=== PATIENT | female | born 1985 | race Caucasian/White ===

== ENCOUNTER 2019-01-16 21:28 | Emergency (ER) | payer OTHER ==
[2019-01-16] MEDS ORDERED: TYLENOL PO ONE (22:25)
--- NOTE | 2019-01-16 23:49 | Emergency Department Report ---
ED Fall HPI - General Chief Complaint: Fall Stated Complaint: BODY PAIN(POST FALL) Time Seen by Provider: 01/16/19 23:44 Source: patient Mode of arrival: Ambulatory - History of Present Illness Initial Comments: 33-year-old female reports to the emergency room status post slipped on water and had a ground-level fall around 7 PM tonight. Patient comes in complaining of left forearm pain and left the bilateral feet pain. Patient reports she is able to ambulate. She has no allergies to medications MR. Guerrero is 01/09/2019. Patient has no past medical history. 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: yes, by bystander Place Fall Occurred: other (treatment at) Loss of Consciousness: none Prolonged Down Time?: no Symptoms Prior to Fall: none Location - Extremities: Left: Forearm, Knee, Foot, Right: Foot Severity scale (0 -10): 10 Quality: sharp, aching Context: tripped/slipped Associated Symptoms: denies: headache, neck pain, numbness, weakness, unable to walk - Related Data Previous Rx's Medication Instructions Recorded Last Taken Type Ibuprofen [Motrin 600 MG tab] 600 mg PO Q8H PRN #15 tablet 01/17/19 Unknown Rx Allergies Allergy/AdvReac Type Severity Reaction Status Date / Time No Known Allergies Allergy Verified 01/16/19 23:59 ED Review of Systems ROS: Stated complaint: BODY PAIN(POST FALL) Other details as noted in HPI Comment: All other systems reviewed and negative Musculoskeletal: arthralgia ED Past Medical Hx - Past Medical History Previous Medical History?: No - Surgical History Past Surgical History?: No - Social History Smoking Status: Never Smoker Substance Use Type: None - Medications Home Medications: Home Medications Medication Instructions Recorded Confirmed Last Taken Type Ibuprofen [Motrin 600 MG tab] 600 mg PO Q8H PRN #15 tablet 01/17/19 Unknown Rx ED Physical Exam - General Limitations: Language Barrier General appearance: alert, in no apparent distress - Head Head exam: Present: atraumatic, normocephalic - Eye Eye exam: Present: EOMI - ENT ENT exam: Present: mucous membranes moist - Expanded Upper Extremity Exam Left Shoulder Exam: Present: normal inspection, full ROM Upper Arm exam: Present: normal inspection, full ROM Elbow exam: Present: normal inspection, full ROM Forearm Wrist exam: Present: tenderness, swelling, ecchymosis Neuro motor exam: Present: wrist extension intact, thumb opposition intact, thumb IP flexion intact Neurosensory exam: Present: 2-point discrimination Vascular: Present: normal capillary refill. Absent: vascular compromise - Expanded Lower Extremity Exam Left Hip exam: Present: normal inspection Upper Leg exam: Present: normal inspection Knee exam: Present: full ROM, abrasion. Absent: swelling Lower Leg exam: Present: normal inspection, full ROM Ankle exam: Present: full ROM, tenderness, swelling, ecchymosis Right Hip exam: Present: normal inspection, full ROM Upper Leg exam: Present: normal inspection, full ROM Knee exam: Present: normal inspection, full ROM Lower Leg exam: Present: normal inspection, full ROM Ankle exam: Present: full ROM, tenderness, swelling, ecchymosis Foot/Toe exam: Present: normal inspection, full ROM Neuro vascular tendon exam: Present: no vascular compromise - Back Exam Back exam: Present: normal inspection, full ROM ED Course Vital Signs 01/16/19 21:32 Temperature 98.4 F Pulse Rate 108 H Respiratory 18 Rate Blood Pressure 124/83 O2 Sat by Pulse 100 Oximetry ED Medical Decision Making - Radiology Data Radiology results: report reviewed Patient: STEPHEN ROCHA MR#: [id number] : 1985 Acct:[id number] Age/Sex: 33 / F ADM Date: 01/16/19 Loc: ED Attending Dr: Ordering Physician: HAYDE BLACKWOOD Date of Service: 01/16/19 Procedure(s): XR forearm LT Accession Number(s): [id number] cc: HAYDE BLACKWOOD Fluoro Time In Minutes: PROCEDURE: XR FOREARM LT TECHNIQUE: Left forearm radiographs, AP and lateral views. HISTORY: fall with pain and swelling COMPARISONS: None . FINDINGS: Fracture (s) and/or Dislocation(s): None . Joint space(s): Normal . Soft tissues: Normal . Bone mineralization: Normal . Foreign bodies: None . IMPRESSION: Normal Examination . This document is electronically signed by Neris Manzo DO., January 17 2019 12:43:24 AM ET Transcribed By: [facility] Dictated By: NERIS MANZO MD Electronically Authenticated By: NERIS MANZO MD Signed Date/Time: 01/17/1944 DD/ TD/TT: 01/17/1939 Patient: STEPHEN ROCHA MR#: [id number] : 1985 Acct:[id number] Age/Sex: 33 / F ADM Date: 01/16/19 Loc: ED Attending Dr: Ordering Physician: HAYDE BLACKWOOD Date of Service: 01/16/19 Procedure(s): XR foot BILAT 2V Accession Number(s): [id number] cc: HAYDE BLACKWOOD Fluoro Time In Minutes: PROCEDURE: XR FOOT BILAT 2V TECHNIQUE: BILATERAL foot radiographs, AP and lateral views. HISTORY: pain and tenderness COMPARISONS: None . FINDINGS: Fracture (s) and/or Dislocation(s): None . Alignment: Normal . Joint space(s): Normal . Soft tissues: Normal . Bone mineralization: Normal . Foreign bodies: None . Calcaneal spurring: None . IMPRESSION: Normal Examination of both feet. This document is electronically signed by Neris Manzo DO., January 17 2019 12:45:48 AM ET Transcribed By: [facility] Dictated By: NERIS MANZO MD Electronically Authenticated By: NERIS MANZO MD Signed Date/Time: 01/17/1946 DD/ TD/TT: 01/17/1938 - Medical Decision Making Patient has been evaluated by this provider in fast track Tylenol given in triage for pain management. X-rays have been ordered for left forearm and bilateral feet. Critical care attestation.: If time is entered above; I have spent that time in minutes in the direct care of this critically ill patient, excluding procedure time. ED Disposition Clinical Impression: Fall Qualifiers: Encounter type: initial encounter Qualified Code(s): W19.XXXA - Unspecified fall, initial encounter Contusion of left lower arm Qualifiers: Encounter type: initial encounter Qualified Code(s): S50.12XA - Contusion of left forearm, initial encounter Contusion, foot Qualifiers: Encounter type: initial encounter Laterality: right Qualified Code(s): S90.31XA - Contusion of right foot, initial encounter Contusion of foot, left Qualifiers: Encounter type: initial encounter Qualified Code(s): S90.32XA - Contusion of left foot, initial encounter Disposition: TO HOME OR SELFCARE Is pt being admited?: No Does the pt Need Aspirin: No Condition: Stable Instructions: Fall Prevention (ED), Arthralgia (ED) Additional Instructions: X-rays were negative. You can take ibuprofen for pain management. Follow-up with her primary care provider if his symptoms persist or gets worse. Prescriptions: Ibuprofen [Motrin 600 MG tab] 600 mg PO Q8H PRN #15 tablet PRN Reason: Pain Referrals: [facility] [Provider Group] - 3-5 Days
--- NOTE | 2019-01-17 00:45 | XRay Report ---
PROCEDURE: XR FOREARM LT TECHNIQUE: Left forearm radiographs, AP and lateral views. HISTORY: fall with pain and swelling COMPARISONS: None . FINDINGS: Fracture (s) and/or Dislocation(s): None . Joint space(s): Normal . Soft tissues: Normal . Bone mineralization: Normal . Foreign bodies: None . IMPRESSION: Normal Examination . This document is electronically signed by Khloe Manzo DO., January 17 2019 12:43:24 AM ET
--- NOTE | 2019-01-17 00:47 | XRay Report ---
PROCEDURE: XR FOOT BILAT 2V TECHNIQUE: BILATERAL foot radiographs, AP and lateral views. HISTORY: pain and tenderness COMPARISONS: None . FINDINGS: Fracture (s) and/or Dislocation(s): None . Alignment: Normal . Joint space(s): Normal . Soft tissues: Normal . Bone mineralization: Normal . Foreign bodies: None . Calcaneal spurring: None . IMPRESSION: Normal Examination of both feet. This document is electronically signed by Khloe Manzo DO., January 17 2019 12:45:48 AM ET
[2019-01-17 02:09] VITALS: BP 122/80
== END 2019-01-17 01:56 | disposition home or self-care (01) ==
LOC: ED 21:28
DX: S50.12XA Contusion of left forearm, initial encounter (principal); S90.31XA Contusion of right foot, initial encounter; S90.32XA Contusion of left foot, initial encounter; W01.0XXA Fall on same level from slipping, tripping and stumbling without subsequent striking against object, initial encounter; Y93.89 Activity, other specified; Y92.89 Other specified places as the place of occurrence of the external cause; Y99.8 Other external cause status
CPT/HCPCS: 99283

== ENCOUNTER 2020-09-04 23:56 | Emergency (ER) | payer OTHER ==
[2020-09-05] MEDS ORDERED: diphenhydrAMINE 50 MG/ML VIAL IV ONE (02:48)
[2020-09-05] MEDS ORDERED: SODIUM CHLORIDE 0.9% 1000 ML 1,000 ML IV ONE (02:48)
[2020-09-05] MEDS ORDERED: methylPREDNISolone Sod Succinate 125 MG/2 ML INJ IV ONE (02:48)
[2020-09-05] MEDS ORDERED: FAMOTIDINE 20 MG/2 ML INJ IV ONE (02:48)
--- NOTE | 2020-09-05 02:49 | Emergency Department Report ---
ED General Adult HPI - General Chief complaint: Allergic Reaction Stated complaint: ALLERGIC REACTION PUI?: No Time Seen by Provider: 09/05/20 02:37 Source: patient, RN notes reviewed, old records reviewed Mode of arrival: Ambulatory Limitations: No Limitations - History of Present Illness Initial comments: The patient was evaluated in the emergency department for symptoms described in the history of present illness. He/she was evaluated in the context of the global COVID-19 pandemic, which necessitated consideration that the patient might be at risk for infection with the virus that causes COVID-19. Institutional protocols and algorithms that pertain to the evaluation of patients at risk for COVID-19 are in a state of rapid change based on information released by regulatory bodies including the CDC and federal and state organizations. These policies and algorithms were followed during the patient's care in the emergency department. Please note that these policies, procedures and recommendations changed on a rapid basis. During the entire history and physical examination, I am chaperoned by STEVE Rodríguez Primary CARE doctor: Dr. Rell Nguyen Patient able to speak in Finnish, and also in Romanian. Please note that I am conversant in Romanian. The patient is a 34-year-old female who states that she is not . She presents to the ER with a complaint of 1 day of diffuse body rash. She states that she took an [id number] Zyrtec on Friday. Shortly thereafter, she developed a diffuse rash. She denies headache, neck pain, chest pain, abdominal pain, shortness of breath, fever, chills, sore throat, dysphonia. She reports that she does have an indwelling female pad/tampon, but she only put it in within the past 24 hours. Her rash developed before insertion of the tampon. Her primary care doctor started her on prednisone after the onset of the rash. She was given Pepcid, Benadryl, and Solu-Medrol in the emergency room, which essentially resolved her symptoms. She denies physical pain at the moment -: days(s) Location: chest, back, abdomen, left, right, upper extremity, lower extremity Consistency: constant Improves with: medication Worsens with: none Associated Symptoms: denies other symptoms, rash - Related Data Previous Rx's Medication Instructions Recorded Last Taken Type Ibuprofen [Motrin 600 MG tab] 600 mg PO Q8H PRN #15 tablet 01/17/19 Unknown Rx Allergies Allergy/AdvReac Type Severity Reaction Status Date / Time No Known Allergies Allergy Verified 01/16/19 23:59 ED Review of Systems ROS: Stated complaint: ALLERGIC REACTION Other details as noted in HPI Comment: All other systems reviewed and negative Skin: rash ED Past Medical Hx - Social History Smoking Status: Never Smoker Substance Use Type: None - Medications Home Medications: Home Medications Medication Instructions Recorded Confirmed Last Taken Type Ibuprofen [Motrin 600 MG tab] 600 mg PO Q8H PRN #15 tablet 01/17/19 Unknown Rx ED Physical Exam - General Limitations: No Limitations General appearance: alert, in no apparent distress - Head Head exam: Present: atraumatic, normocephalic - Eye Eye exam: Present: normal appearance, EOMI. Absent: nystagmus - ENT ENT exam: Present: normal exam, normal orophraynx, mucous membranes moist, normal external ear exam, other (There is no stridor or dysphonia. No intraoral lesions noted. Patient speaking in full sentences.) - Neck Neck exam: Present: normal inspection, full ROM. Absent: tenderness, meningismus - Respiratory Respiratory exam: Present: normal lung sounds bilaterally. Absent: respiratory distress, wheezes, rales, rhonchi, stridor, decreased breath sounds - Cardiovascular Cardiovascular Exam: Present: normal rhythm, tachycardia, normal heart sounds. Absent: bradycardia, irregular rhythm, systolic murmur, diastolic murmur, rubs, gallop - GI/Abdominal GI/Abdominal exam: Present: soft, normal bowel sounds. Absent: distended, tenderness, guarding, rebound, rigid, pulsatile mass - Extremities Exam Extremities exam: Present: normal inspection, full ROM, other (2+ pulses noted in the bilateral upper and lower extremities. There is no palpable cord. negative Homans sign. Muscular compartments are soft. The pelvis is stable.). Absent: pedal edema, calf tenderness - Back Exam Back exam: Present: normal inspection, full ROM. Absent: tenderness, CVA tenderness (R), CVA tenderness (L), paraspinal tenderness, vertebral tenderness - Neurological Exam Neurological exam: Present: alert, normal gait, other (No facial droop. Tongue midline. Extraocular movements intact bilaterally. Facial sensation intact to light touch in V1, V2, V3 distribution bilaterally. 5 and a 5 strength in 4 extremities. Sensation intact to light touch in 4 extremities.) - Psychiatric Psychiatric exam: Present: anxious - Skin Skin exam: Present: warm, dry, intact, rash, erythema, other (Diffuse blanching macules, nontender, without pus or streaking.). Absent: cyanosis, diaphoretic, urticaria, vesicles, petechiae, pallor, abrasion, ecchymosis ED Course Vital Signs 09/05/20 09/05/20 09/05/20 00:28 02:40 03:40 Temperature 97.5 F L Pulse Rate 127 H 112 H 98 H Respiratory 17 16 16 Rate Blood Pressure 116/80 Blood Pressure 116/83 124/84 [Left] O2 Sat by Pulse 99 100 100 Oximetry 09/05/20 03:51 Temperature Pulse Rate 98 H Respiratory 16 Rate Blood Pressure Blood Pressure [Left] O2 Sat by Pulse 100 Oximetry ED Medical Decision Making - Medical Decision Making Vital Signs 09/05/20 09/05/20 09/05/20 00:28 02:40 03:40 Temperature 97.5 F L Pulse Rate 127 H 112 H 98 H Respiratory 17 16 16 Rate Blood Pressure 116/80 Blood Pressure 116/83 124/84 [Left] O2 Sat by Pulse 99 100 100 Oximetry 09/05/20 03:51 Temperature Pulse Rate 98 H Respiratory 16 Rate Blood Pressure Blood Pressure [Left] O2 Sat by Pulse 100 Oximetry Differential diagnosis, including but not limited to: Urticaria, nonspecific allergic reaction Assessment and plan: 34-year-old female, who was afebrile, with reassuring vital signs, with resolved tachycardia, without intraoral involvement, who reports inserting a tampon after onset of rash, rashes not erythroderma-like or sunburned in nature, she is afebrile, nontoxic-appearing, denies vaginal discomfort, rectal discomfort, dysuria, this is not suggestive of toxic shock, or any dangerous etiology. This is most likely urticaria. Her tachycardia resolved, she is resting comfortably on her stretcher, and in no acute distress. Discharged with as needed EpiPen, Pepcid, Benadryl, steroid burst, she can follow-up with outpatient primary care, dermatology, and or allergy/immunology. Patient observed in this ER for approximately 4 hours without clinical decompensation. Critical care attestation.: If time is entered above; I have spent that time in minutes in the direct care of this critically ill patient, excluding procedure time. ED Disposition Clinical Impression: Urticaria Disposition: DC-01 TO HOME OR SELFCARE Is pt being admited?: No Does the pt Need Aspirin: No Condition: Stable Instructions: Rash, Adult Additional Instructions: Take the prescribed medications as needed and directed. Use the epinephrine pen only if patient develops inability to speak, or inability to breathe. Recommend follow-up with an outpatient erp analyst, or allergy applications support specialist within the next 2 weeks, if rash does not resolve. Please return to the emergency room right away with new pain, worsening pain, migration of pain, projectile vomiting, change in mental status, inability to tolerate liquid feeds, oral pain/discomfort, vaginal/rectal pain or discomfort, fevers or chills, severe muscle aches, or any new, worsened or different symptoms not present on the initial emergency room evaluation [place] los medicamentos recetados segn sea necesario y se le indique. Use la pluma de epinefrina solo si el paciente desarrolla incapacidad para hablar o inhabilidad para respirar. Recomiende un seguimiento con un dermatlogo para pacientes ambulatorios o un especialista en inmunologa de alergias dentro de las prximas 2 semanas, si la erupcin no se resuelve. Regrese a la nisha de emergencias de inmediato con un nuevo dolor, empeoramiento del dolor, migracin del dolor, vmitos en proyectil, cambio en el estado mental, incapacidad para tolerar la alimentacin lquida, dolor o malestar oral, dolor o malestar vaginal / rectal, fiebre o escalofros, joel musculares o cualquier sntoma nuevo, empeorado o diferente que no est presente en la evaluacin inicial de la nisha de emergencias Referrals: PRIMARY CARE, [Primary Care Provider] - 3-5 Days TIERA NGUYEN MD [Staff Physician] - 3-5 Days Forms: Work/School Release Form(ED) Time of Disposition: 04:34 Print Language: CAPE VERDEAN
[2020-09-05 06:22] VITALS: BP 114/64
== END 2020-09-05 05:10 | disposition home or self-care (01) ==
LOC: ED 23:56
DX: L50.9 Urticaria, unspecified (principal); Z79.1 Long term (current) use of non-steroidal anti-inflammatories (NSAID)
CPT/HCPCS: 96361; 96374; 96375; 99283; J1200; J2930; J7030

== ENCOUNTER 2020-12-19 14:17 | Outpatient (CLI) | payer OTHER ==
--- NOTE | 2020-12-19 16:35 | Mammography Report ---
BILATERAL DIGITAL DIAGNOSTIC MAMMOGRAM WITH CAD , 12/19/2020 LEFT COMPLETE BREAST ULTRASOUND CLINICAL INFORMATION / INDICATION: The patient reports pain in the upper outer left breast for one mo nth. TECHNIQUE: Digital bilateral mammographic imaging was performed. Complete ultrasound of all four (4) quadrants was performed. This examination was interpreted with the benefit of Computer-Aided Detectio n (CAD) analysis. COMPARISON: None. This is the patient's first mammogram FINDINGS: Breast Density: The breasts are heterogeneously dense, which may obscure small masses. MAMMOGRAPHIC FINDINGS: No dominant mass, suspicious calcifications, or architectural distortion in ei ther breast. There is no focal abnormality to account for the patient's left breast pain ULTRASOUND FINDINGS: Complete sonographic evaluation of all 4 quadrants and retroareolar region was p erformed. There is no evidence of suspicious solid mass or shadowing. There is no focal abnormality to account for the patient's left breast pain. A few small scattered cysts and fibrocystic change ar e noted in the upper outer quadrant with the largest cyst located at the 2:00 position measuring 1 cm . IMPRESSION: No mammographic or sonographic evidence of malignancy. No focal mammographic or sonograph ic abnormality is seen to correspond to the patient's left breast pain. Therefore, clinical correlati on is recommended. Follow up recommendation: Clinical exam BI-RADS Category 2: Benign. A "normal" or negative report should not discourage follow up or biopsy of a clinically significant f inding. A written summary of these findings will be mailed to the patient. The patient will be entered into a mammography reporting system which will generate a reminder letter for the patient's next appointmen t at the appropriate interval. According to the [employer], yearly mammograms are recommended starting at age 40 and continuing as long as a woman is in good health. Breast MRI is recommended for women with an bryanna roximately 20-25% or greater lifetime risk of breast cancer, including women with a strong family his tory of breast or ovarian cancer and women who have been treated for Hodgkin's disease. Signer Name: Juju Rangel MD Signed: 12/19/2020 4:29 PM Workstation Name: [id number]
--- NOTE | 2020-12-19 16:36 | Ultrasound Report ---
Please see diagnostic mammography report performed the same day. Signer Name: Juju Rangel MD Signed: 12/19/2020 4:29 PM Workstation Name: [id number]
== END 2020-12-19 14:18 | disposition home or self-care (01) ==
LOC: SPVWC 14:17
PROVIDERS: ATTEND Surgery
DX: N60.02 Solitary cyst of left breast (principal); R92.8 Other abnormal and inconclusive findings on diagnostic imaging of breast
CPT/HCPCS: 77066

== ENCOUNTER 2022-01-30 13:51 | Outpatient (CLI) | payer OTHER ==
--- NOTE | 2022-01-31 09:11 | Ultrasound Report ---
BILATERAL DIGITAL DIAGNOSTIC MAMMOGRAM WITH CAD WITH TOMOSYNTHESIS, 01/30/2022 BILATERAL LIMITED BREAST ULTRASOUND CLINICAL INFORMATION / INDICATION: Patient presents for evaluation of bilateral breast pain. DIFFUSE CYSTIC MASTOPATHY OF LEFT BREAST N60.12 TECHNIQUE: Digital bilateral mammographic imaging was performed. Spot compression views were obtained . Limited ultrasound was performed. This examination was interpreted with the benefit of Computer-Aid ed Detection (CAD) analysis. COMPARISON: Prior mammogram 12/19/2020 FINDINGS: Breast Density: The breasts are heterogeneously dense, which may obscure small masses. MAMMOGRAPHIC FINDINGS: No dominant mass, suspicious calcifications, or architectural distortion in ei ther breast. There has been no significant change compared with the prior examination. There is no ma mmographic abnormality to account for the area of focal pain in both breasts, therefore targeted bila teral breast ultrasound was performed for further evaluation. ULTRASOUND FINDINGS: Targeted ultrasound evaluation was performed of the area of interest. Right breast: Targeted ultrasound of the area of focal pain in the upper outer quadrant of the right breast reveals dense fibroglandular tissue. No suspicious cystic or solid lesion identified. Left breast: Targeted ultrasound of the area of focal pain in the upper outer quadrant of the left br east reveals dense fibroglandular tissue. No suspicious cystic or solid lesion identified. IMPRESSION: 1. There is no mammographic or sonographic abnormality to account for the area of focal pain in both breasts, therefore clinical correlation is recommended. Follow up recommendation: Unless otherwise clinically indicated, recommend patient return to routine screening mammography at age 40. BI-RADS Category 1: NEGATIVE. A "normal" or negative report should not discourage follow up or biopsy of a clinically significant f inding. A written summary of these findings will be mailed to the patient. The patient will be entered into a mammography reporting system which will generate a reminder letter for the patient's next appointmen t at the appropriate interval. According to the [employer], yearly mammograms are recommended starting at age 40 and continuing as long as a woman is in good health. Breast MRI is recommended for women with an bryanna roximately 20-25% or greater lifetime risk of breast cancer, including women with a strong family his tory of breast or ovarian cancer and women who have been treated for Hodgkin's disease. Signer Name: Shell Cody MD Signed: 01/31/2022 9:07 AM Workstation Name: [id number]
== END 2022-01-30 13:52 | disposition home or self-care (01) ==
LOC: SPVWC 13:51
PROVIDERS: ATTEND Surgery
DX: N60.12 Diffuse cystic mastopathy of left breast (principal); N60.11 Diffuse cystic mastopathy of right breast; N64.4 Mastodynia
CPT/HCPCS: 76642; 77066; G0279

== ENCOUNTER 2022-05-06 13:40 | Emergency (ER) | payer OTHER ==
[2022-05-06 13:48] VITALS: BP 119/76
[2022-05-06 16:15] LABS: Bilirubin,Urine NEG (Negative); Blood,Urine SM (Negative); Color,Urine Yellow (Yellow); Protein,Urine <15 mg/dL mg/dL (Negative); Urobilinogen,Urine < 2.0 mg/dL (<2.0)
[2022-05-06 16:18] LABS: Mucus,Urine FEW /HPF
== END 2022-05-06 14:35 | disposition left against medical advice (07) ==
LOC: ED 13:40
DX: R10.9 Unspecified abdominal pain (principal); R11.10 Vomiting, unspecified; Z53.21 Procedure and treatment not carried out due to patient leaving prior to being seen by health care provider
CPT/HCPCS: 81001